=== PATIENT | female | born 1955 | race Two or more races ===

== ENCOUNTER 2021-02-01 08:45 | Inpatient (IN) | payer OTHER ==
[~2021-02-01] VITALS: Ht 152.4 cm; Wt 73.5 kg
[2021-02-01] MEDS ORDERED: LOSARTAN-HCTZ1 EAC1 PO (10:25)
[2021-02-01] MEDS ORDERED: TOPROL XL25 M1 PO (10:25)
[2021-02-01] MEDS ORDERED: NORVASC5 MG PO (10:25)
[2021-02-01] MEDS ORDERED: METFORMIN HCL1000 M2 PO (10:26)
[2021-02-01] MEDS ORDERED: PROTONIX40 MG PO (10:26)
[2021-02-01] MEDS ORDERED: GLIPIZIDE XL5 MG PO (10:26)
[2021-02-01] MEDS ORDERED: LIPITOR40 MG PO (10:27)
[2021-02-09] MEDS ORDERED: NAPROXEN500 MG (08:40)
[2021-02-09] MEDS ORDERED: IBANDRONATE SO150 MG (08:40)
[2021-02-09] MEDS ORDERED: VITAMIN D3125 MC1 (08:41)
[2021-02-09] MEDS ORDERED: ST. JOSEPH ASPI81 M2 (08:41)
[2021-02-09] MEDS ORDERED: ATENOLOL50 MG (08:41)
[2021-02-10] MEDS ORDERED: ELIQUIS2.5 MG PO (18:06)
[2021-02-10] MEDS ORDERED: CIPRO500 MG PO (18:06)
[2021-02-10] MEDS ORDERED: PERCOCET 5-3251 EACH PO (18:06)
== END 2021-02-10 20:44 | DRG 470 ==
LOC: SURG 02-08 06:35 → O/R 02-08 06:35 → SURH 02-08 08:45 → SURG 02-08 19:22
PROVIDERS: ADMIT Orthopaedic Surgery; ATTEND Orthopaedic Surgery
PROC: 0SRC0J9 Replacement of Right Knee Joint with Synthetic Substitute, Cemented, Open Approach (ICD-10-PCS; principal; 2021-02-08 14:30)
DX: M17.11 Unilateral primary osteoarthritis, right knee (principal); I10 Essential (primary) hypertension